=== PATIENT | male | born 1990 | race Caucasian/White ===

== ENCOUNTER 2022-04-26 08:50 | Emergency (ER) | payer SELFPAY ==
[~2022-04-26] VITALS: Ht 172.7 cm; Wt 70.4 kg
[2022-04-26 09:40] VITALS: BP 144/80
== END 2022-04-26 09:52 | disposition home or self-care (01) ==
LOC: ER 08:50
DX: S51.811D Laceration without foreign body of right forearm, subsequent encounter (principal); X58.XXXD Exposure to other specified factors, subsequent encounter